=== PATIENT | female | born 1960 | race Caucasian/White ===

== ENCOUNTER 2017-09-25 11:43 | Emergency (ER) | payer BC, MEDICAID ==
[2017-09-25] MEDS ORDERED: HYDROmorphone 0.5 MG/0.5 ML Syringe IM ONE (12:52)
--- NOTE | 2017-09-25 12:59 | EDM.PDOC ---
ED HPI GENERAL MEDICAL PROBLEM - General Chief Complaint: Skin Complaint Stated Complaint: HIVES,RED BURNING Time Seen by Provider: 09/25/17 12:53 Source of Information: Reports: Patient History Limitations: Reports: No Limitations - History of Present Illness INITIAL COMMENTS - FREE TEXT/NARRATIVE: PT HAS A RASH WHICH STARTS AT THE RT SIDE OF THE NECK. iT IS OVER THR RT SHOULDER AND SOME WHICH IS DOWN THE RT ARM. tHERE IS SOME BLISTERS OVER THE RT CLAVICLE. sHE HAS NO LESIONS ON THE LEFT SIDE OF HER BODY. Onset: Gradual, Other ( LAST 2 DAYS. ) Duration: Hour(s): Location: Reports: Neck, Back, Upper Extremity, Right Associated Symptoms: Reports: Other (PAIN IN THE RT ARM. ) Bilateral Upper Posterior Neck Pain Score (Numeric/FACES): 9 - Related Data Allergies Allergy/AdvReac Type Severity Reaction Status Date / Time aspirin Allergy Stomach Verified 04/21/14 11:20 Ache Home Meds: Home Meds Cyclobenzaprine [Flexeril] 10 mg PO 04/21/14 [History] Docusate Sodium [Doc-Q-Lace] 100 mg PO 04/21/14 [History] FLUoxetine [PROzac] 40 mg PO 04/21/14 [History] Meloxicam [Mobic] 15 mg PO 04/21/14 [History] Omeprazole [Prilosec] 40 mg PO BID 04/21/14 [History] atorvaSTATin [Lipitor] 20 mg PO 04/21/14 [History] traMADol HCl [Tramadol HCl] 04/21/14 [History] Past Medical History HEENT History: Reports: None 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: Neurological History: Reports: Concussion, Seizure Psychiatric History: Reports: Anxiety, Depression, Panic Attack - Infectious Disease History Infectious Disease History: Reports: Chicken Pox - Past Surgical History HEENT Surgical History: Reports: None Musculoskeletal Surgical History: Reports: Shoulder Surgery Social & Family History - Tobacco Use Smoking Status *Q: Current Some Day Smoker Years of Tobacco use: 16 Packs/Tins Daily: 0.2 Second Hand Smoke Exposure: Yes - Caffeine Use Caffeine Use: Reports: Coffee - Alcohol Use Days Per Week of Alcohol Use: 1 Number of Drinks Per Day: 1 Total Drinks Per Week: 1 - Recreational Drug Use Recreational Drug Use: No ED ROS GENERAL - Review of Systems Review Of Systems: See Below Constitutional: Reports: No Symptoms HEENT: Reports: No Symptoms Respiratory: Reports: No Symptoms Cardiovascular: Reports: No Symptoms Endocrine: Reports: No Symptoms GI/Abdominal: Reports: No Symptoms : Reports: No Symptoms Skin: Reports: Rash, Other ( PT HAS A PAINFUL BLISTER LIKE RASH ON THE RT SHOULDER AND IN THE RT ARM. ) Neurological: Reports: No Symptoms ED EXAM, SKIN/RASH Exam: See Below Text/Narrative:: PT HAS A BLISTER LIKE RASH OVER THE RT SHOULDER STARTING IN THE BACK OF THE NECK. sHE HAS SOME LESIONS GOING DOWN THE ARM Exam Limited By: No Limitations General Appearance: Alert, Anxious, Moderate Distress Ears: Normal TMs Nose: Normal Inspection Throat/Mouth: Normal Inspection Head: Atraumatic Respiratory/Chest: No Respiratory Distress Extremities: Other (PT IS VERY UNCOMFORTABLE. sHE HAS A VESCULR RASH WHICH STARTS AT THE BACK OHER RT NECK AND EXTENDS TO THE SHOULDER AND DOWN THE ARM. sHE HAS SOME LESIONS ON THE RT CLAVICLE AREA. ) Neurological: Alert, Oriented, Normal Cognition, Other (PT APPEARS VERY UNCOMFORTABLE. ) Course - Vital Signs Last Recorded V/S: Last Vital Signs Temp 36.7 C 09/25/17 12:15 Pulse 80 09/25/17 12:15 Resp 14 09/25/17 12:15 BP 143/99 H 09/25/17 12:15 Pulse Ox 97 09/25/17 12:15 - Orders/Labs/Meds Orders: Active Orders 24 hr Category Date Time Status HYDROmorphone [Dilaudid] Med 09/25/17 12:52 Once 0.5 mg IM ONETIME ONE Medication Orders Hydromorphone HCl (Dilaudid) 0.5 mg IM ONETIME ONE Stop: 09/25/17 12:53 Meds: Medications Generic Name Dose Route Start Last Admin Trade Name Freq PRN Reason Stop Dose Admin Hydromorphone HCl 0.5 mg 09/25/17 12:52 Dilaudid IM 09/25/17 12:53 ONETIME ONE - Re-Assessments/Exams Free Text/Narrative Re-Assessment/Exam: 09/25/17 12:59 PT WAS GIVEN DILAUDID .5 IM. Departure - Departure Time of Disposition: 12:59 Disposition: Home, Self-Care 01 Condition: Fair Clinical Impression: Shingles - Discharge Information Referrals: PCP,None [Primary Care Provider] - Care Plan Goals: USE CALADRYL ON THE RASH, ZOVIRAX 400MG QID FOR 5 DAYS, PREDISONE 30MG FOR 2 DAYS, 20MG FOR 2 DAYS, 15 MG FOR 2 DAYS AND 10 MG FOR 2 DAYS. PERCOCET 5/325 Q6H PRN FOR PAIN COOL PACKS MAY BE HELPFU. FOLLOW UP APPT AT THE CLINIC WITH Char Westbrook--4-5 DAYS. - My Orders Last 24 Hours: My Active Orders 09/25/17 12:52 HYDROmorphone [Dilaudid] 0.5 mg IM ONETIME ONE - Assessment/Plan Last 24 Hours: My Active Orders 09/25/17 12:52 HYDROmorphone [Dilaudid] 0.5 mg IM ONETIME ONE
== END 2017-09-25 13:32 | disposition home or self-care (01) ==
LOC: JP.ED 11:43
DX: B02.9 Zoster without complications (principal); F17.210 Nicotine dependence, cigarettes, uncomplicated; Z88.8 Allergy status to other drugs, medicaments and biological substances; Z79.899 Other long term (current) drug therapy
CPT/HCPCS: 96372; 99283; J1170

== ENCOUNTER 2022-09-26 23:05 | Emergency (ER) | payer BC, MEDICAID ==
[2022-09-26] MEDS ORDERED: Proparacaine 0.5% Ophth Soln 15 ML Bottle EYERT ONE (23:09)
== END 2022-09-26 23:58 | disposition home or self-care (01) ==
LOC: JP.ED 23:05
DX: S05.01XA Injury of conjunctiva and corneal abrasion without foreign body, right eye, initial encounter (principal); Z72.0 Tobacco use; Z88.8 Allergy status to other drugs, medicaments and biological substances
CPT/HCPCS: 99283; A9270

== ENCOUNTER 2024-02-14 15:42 | Emergency (ER) | payer SELFPAY | END 2024-02-14 19:11 | disposition home or self-care (01) | LOC: JP.ED 15:42 | DX: L03.116 Cellulitis of left lower limb (principal); I83.12 Varicose veins of left lower extremity with inflammation; Z88.8 Allergy status to other drugs, medicaments and biological substances | CPT/HCPCS: 99283 ==

== ENCOUNTER 2024-10-18 13:28 | Emergency (ER) | payer MEDICAID ==
[2024-10-18 14:33] LABS: BASOPHILS ABSOLUTE AUTO 0.04 K/uL (0.00-0.10); BASOPHILS PERCENT AUTO 0.4 % (0.1-1.3); EOSINOPHILS ABSOLUTE AUTO 0.14 K/uL (0.00-0.40); EOSINOPHILS PERCENT AUTO 1.4 % (0.0-5.4); HEMATOCRIT 34.8 % (34.3-46.0); HEMOGLOBIN 11.7 g/dL (11.2-15.5); IMMATURE GRAN ABSOLUTE AUTO 0.03 K/uL (0.00-0.23); IMMATURE GRAN PERCENT AUTO 0.3 % (0.0-0.7); LYMPHOCYTES ABSOLUTE AUTO 0.95 K/uL (0.8-3.3); LYMPHOCYTES PERCENT AUTO 9.7 % (11.4-47.7); MEAN CORPUSCULAR HEMOGLOBIN 29.3 pg (31.6-35.5); MEAN CORPUSCULAR HGB CONC 33.6 g/dL (31.6-35.5); MEAN CORPUSCULAR VOLUME 87.2 fL (81.4-99.0); MONOCYTES ABSOLUTE AUTO 1.12 K/uL (0.20-0.90); MONOCYTES PERCENT AUTO 11.5 % (3.3-12.6); NEUTROPHILS ABSOLUTE AUTO 7.49 K/uL (1.0-7.6); NEUTROPHILS PERCENT AUTO 76.7 % (40.0-78.1); PLATELET COUNT,PLT 314 K/uL (130-375); RED BLOOD CELL COUNT 3.99 M/uL (3.77-5.24); WHITE BLOOD CELL COUNT,WBC 9.8 K/uL (3.2-11.0)
[2024-10-18 14:57] LABS: SEDIMENTATION RATE MANUAL 70 mm/hr (0-25)
[2024-10-18] MEDS: Ibuprofen 400 MG Tab PO ONE (14:58)
[2024-10-18 15:04] LABS: A/G RATIO 0.8 (1.2-2.2); ALANINE AMINOTRANSFERASE,ALT 16 U/L (12-78); ALBUMIN 3.3 g/dL (3.4-5.0); ALKALINE PHOSPHATASE 88 U/L (46-116); ASPARTATE AMNIOTRANSFERASE,AST 12 U/L (15-37); BILIRUBIN TOTAL 0.4 mg/dL (0.2-1.0); BLOOD UREA NITROGEN,BUN 14 mg/dL (7-18); C-REACTIVE PROTEIN 1.12 mg/dL (<0.50); CALCIUM 9.1 mg/dL (8.5-10.1); CARBON DIOXIDE,CO2 31 mmol/L (21-32); CHLORIDE,CL 102 mmol/L (100-108); CREATININE 0.7 mg/dL (0.6-1.0); EST CRCL DRUG DOSING (CG) 64.21 mL/min; ESTIMATED GFR 97 mL/min (>60); GLUCOSE RANDOM 97 mg/dL (74-106); POTASSIUM,K 3.5 mmol/L (3.6-5.2); PROTEIN TOTAL,TP 7.4 g/dL (6.4-8.2); SODIUM,NA 140 mmol/L (140-148)
[2024-10-18 15:05] LABS: ANION GAP 10.5 mmol/L (5.0-14.0)
[2024-10-18 15:27] LABS: LYME AB IgG Negative (Negative); LYME AB IgM Negative (Negative)
[2024-10-18] MEDS: Acetaminophen 325 MG Tab PO ONE (15:35)
[2024-10-21 10:51] LABS: ANAPLASMA PHAGOCYTOPHILUM PCR Not Detected; BABESIA MICROTI BY PCR Not Detected; BABESIA SPECIES BY PCR Not Detected; EHRLICHIA CHAFFEENSIS BY PCR Not Detected; EHRLICHIA EWINGII/CANIS BY PCR Not Detected; EHRLICHIA MURIS-LIKE BY PCR Not Detected
== END 2024-10-18 16:42 | disposition home or self-care (01) ==
LOC: JP.ED 13:28
DX: M25.562 Pain in left knee (principal); M25.561 Pain in right knee; Z88.6 Allergy status to analgesic agent
CPT/HCPCS: 36415; 735622650; 73562-50; 80053; 85025; 85379; 85651; 86140; 86618; 87468; 87469; 87484; 87798; 93970; 93970-26; 99283; 99284; A9270-GY